=== PATIENT | male | born 2000 | race African-American/Black ===

== ENCOUNTER 2023-01-28 13:50 | Emergency (ER) | payer SELFPAY ==
[~2023-01-28] VITALS: Ht 177.8 cm; Wt 65.3 kg
[2023-01-28 13:55] VITALS: O2SAT 100
[2023-01-28] MEDS ORDERED: BO1 TP (14:48)
[2023-01-28 16:10] VITALS: BP 116/72; PULSE 65; RESP 19; TEMP 98.2
== END 2023-01-28 16:12 | disposition home or self-care (01) ==
LOC: ER 13:50
DX: S60.811A Abrasion of right wrist, initial encounter (principal); X58.XXXA Exposure to other specified factors, initial encounter; Y93.89 Activity, other specified; Y92.89 Other specified places as the place of occurrence of the external cause; Y99.8 Other external cause status
CPT/HCPCS: 99281